=== PATIENT | male | born 1980 | race Two or more races ===

== ENCOUNTER 2020-06-11 18:55 | Inpatient (IN) | payer MEDICAID ==
[~2020-06-11] VITALS: Ht 180.3 cm; Wt 83.3 kg
[2020-06-11] MEDS ORDERED: KETOROLAC TROMETH 30 MG/ML 1ML VIAL IV ONE (19:15)
[2020-06-11] MEDS ORDERED: SODIUM CHLORIDE 0.9% 1,000 ML IV ONE (19:15)
[2020-06-11] MEDS ORDERED: ONDANSETRON HCL 4 MG/2 ML VIAL IV ONE (19:15)
[2020-06-11 19:36] LABS: Basophils # (auto) 0 10 ^3/uL (0-0.2); Basophils % (auto) 0.1 % (0.0-2.0); Eosinophils # (auto) 0 10 ^3/uL (0-0.8); Hematocrit 44.5 % (41.0-53.0); Hemoglobin 14.9 g/dL (13.5-17.5); Lymphocytes # (auto) 0.5 10 ^3/uL (0.4-5.4); Lymphocytes % (auto) 5.5 % (10.0-50.0); Mean Corpuscular Hgb Conc. 33.5 g/dL (32.0-36.0); Mean Corpuscular Volume 95.4 fL (80.0-100.0); Monocytes # (auto) 0.3 10 ^3/uL (0-1.3); Monocytes % (auto) 3.6 % (0.0-12.0); Neutrophils # (auto) 7.9 10 ^3/uL (1.6-8.6); Neutrophils % (auto) 90.8 % (37.0-80.0); Platelet Count (auto) 222 10^3/uL (140-450); Red Blood Cells 4.67 10^6/uL (4.5-5.90); Red Cell Distribution Width 12.8 % (11.8-14.3); White Blood Cell 8.7 10^3/uL (4.4-10.8)
[2020-06-11 19:53] LABS: Albumin 4.7 g/dL (3.4-5.0); Calcium 9.6 mg/dL (8.5-10.1); Potassium 4.1 mmol/L (3.5-5.1)
[2020-06-11 19:55] LABS: BUN/Creatinine Ratio 11.9
[2020-06-11 19:57] LABS: Bilirubin, Total 0.7 mg/dL (0.2-1.0); Total Protein 8.5 g/dL (6.4-8.2)
[2020-06-12] MEDS ORDERED: TAMSULOSIN HYDROCHLORIDE 0.4 MG CAP PO ONE ×2 (00:45→13:00)
[2020-06-12] MEDS ORDERED: ONDANSETRON HCL 4 MG/2 ML VIAL IV PRN (00:45)
[2020-06-12] MEDS ORDERED: SODIUM CHLORIDE 0.9% 500 ML IV ONE (00:45)
[2020-06-12] MEDS ORDERED: TEMAZEPAM 15 MG CAP PO PRN (00:45)
[2020-06-12] MEDS ORDERED: ACETAMINOPHEN 325 MG TAB PO PRN (00:45)
[2020-06-12] MEDS: MORPHINE SULFATE 4 MG/ML SYR/VIAL IV PRN ×2 (02:02→06:43)
[2020-06-12 09:47] VITALS: BP 129/78
[2020-06-12] MEDS: FAMOTIDINE 20 MG TAB PO SCH ×2 (09:50→22:29)
[2020-06-12] MEDS: HYDROcodone-ACET 5/325MG TAB PO PRN (09:51)
[2020-06-12] MEDS ORDERED: SODIUM CHLORIDE 0.9% 1,000 ML IV ONE (12:00)
[2020-06-12] MEDS ORDERED: MANNITOL FTV 25% 12.5 GM/50 ML 50 ML IV ONE (12:00)
[2020-06-12 13:05] VITALS: BP 120/69
[2020-06-12] MEDS: SODIUM CHLORIDE 0.9% 1,000 ML IV SCH ×2 (13:30→22:29)
[2020-06-12 16:50] VITALS: BP 150/74
[2020-06-12 22:00] VITALS: BP 116/66
[2020-06-13] MEDS: SODIUM CHLORIDE 0.9% 1,000 ML IV SCH ×3 (02:50→16:10)
[2020-06-13 05:00] VITALS: BP 121/83
[2020-06-13] MEDS: HYDROcodone-ACET 5/325MG TAB PO PRN (05:44)
[2020-06-13 06:11] LABS: Basophils # (auto) 0 10 ^3/uL (0-0.2); Basophils % (auto) 0.6 % (0.0-2.0); Eosinophils # (auto) 0 10 ^3/uL (0-0.8); Eosinophils % (auto) 0.4 % (0.0-7.0); Hematocrit 39.3 % (41.0-53.0); Hemoglobin 13.5 g/dL (13.5-17.5); Lymphocytes # (auto) 1.3 10 ^3/uL (0.4-5.4); Lymphocytes % (auto) 15.4 % (10.0-50.0); Mean Corpuscular Hemoglobin 32.9 pg (28.0-32.0); Mean Corpuscular Hgb Conc. 34.5 g/dL (32.0-36.0); Mean Corpuscular Volume 95.6 fL (80.0-100.0); Monocytes # (auto) 0.7 10 ^3/uL (0-1.3); Neutrophils # (auto) 6.2 10 ^3/uL (1.6-8.6); Neutrophils % (auto) 75.6 % (37.0-80.0); Nucleated Red Blood Cells % 0.1 %; Platelet Count (auto) 163 10^3/uL (140-450); Red Blood Cells 4.11 10^6/uL (4.5-5.90); Red Cell Distribution Width 13.2 % (11.8-14.3); White Blood Cell 8.2 10^3/uL (4.4-10.8)
[2020-06-13 06:37] LABS: BUN/Creatinine Ratio 16.8
[2020-06-13 08:00] VITALS: BP 133/73
[2020-06-13] MEDS: MORPHINE SULFATE 4 MG/ML SYR/VIAL IV PRN (08:01)
[2020-06-13] MEDS: FAMOTIDINE 20 MG TAB PO SCH ×2 (09:36→21:29)
[2020-06-13 11:45] VITALS: BP 142/70
[2020-06-13 16:59] VITALS: BP 130/83
[2020-06-13] MEDS ORDERED: TAMSULOSIN HYDROCHLORIDE 0.4 MG CAP PO SCH (18:00)
[2020-06-13 22:00] VITALS: BP 126/75
[2020-06-14] MEDS: SODIUM CHLORIDE 0.9% 1,000 ML IV SCH ×2 (02:14→10:25)
[2020-06-14 05:00] VITALS: BP 123/72
[2020-06-14 08:00] VITALS: BP 122/69
[2020-06-14 08:50] VITALS: BP 122/69
[2020-06-14] MEDS: FAMOTIDINE 20 MG TAB PO SCH (10:25)
== END 2020-06-14 12:31 | disposition home or self-care (01) | DRG 465 ==
LOC: ER 18:57 → OVERFLOW 18:58 → EDBD 18:58 → WEST WING 06-12 08:49
PROVIDERS: ADMIT Nurse Practitioner; ATTEND Family Medicine
DX: N13.2 Hydronephrosis with renal and ureteral calculous obstruction (principal)
CPT/HCPCS: 36415; 74176; 80048; 80053; 85025; 96361; 96374; 96375; 96376; G0378; J1885; J2405